=== PATIENT | female | born 1965 | race Caucasian/White ===

== ENCOUNTER 2019-05-17 16:51 | Inpatient (IN) | payer BC, OTHER ==
[~2019-05-17] VITALS: Ht 167.6 cm; Wt 137.8 kg
[2019-05-17 17:00] VITALS: BP 151/70
[2019-05-17 18:51] LABS: Basophils # (auto) 0.1 uL; Basophils % (auto) 0.9 % (0.0-2.0); Eosinophils # (auto) 0.1 uL; Eosinophils % (auto) 0.5 % (0.0-7.0); Monocytes # (auto) 0.8 uL
[2019-05-17 18:53] LABS: Hemoglobin 14.4 g/dL (12.2-16.2); Lymphocytes # (auto) 1.8 uL; Lymphocytes % (auto) 12.3 % (10.0-50.0); Mean Corpuscular Hemoglobin 23.4 pg (28.0-32.0); Mean Corpuscular Hgb Conc. 31.4 g/dL (32.0-36.0); Mean Corpuscular Volume 74.4 fL (80.0-100.0); Monocytes % (auto) 5.5 % (0.0-12.0); Neutrophils # (auto) 11.7 uL; Neutrophils % (auto) 80.8 % (37.0-80.0); Platelet Count (auto) 401 10^3/uL (140-450); Red Blood Cells 6.18 10^6/uL (4.0-5.20); White Blood Cell 14.5 10^3/uL (4.4-10.8)
[2019-05-17 19:05] LABS: Albumin 3.9 g/dL (3.4-5.0); Anion Gap 12 (5-15); Blood Urea Nitrogen 18 mg/dL (7-18); Calcium 9.6 mg/dL (8.5-10.1); Carbon Dioxide 21 mmol/L (21-32); Chloride 98 mmol/L (98-107); Glucose 229 mg/dL (74-106); Potassium 4.5 mmol/L (3.5-5.1); Sodium 131 mmol/L (136-145)
[2019-05-17 19:07] LABS: Alanine Aminotransferase 24 U/L (13-56); Aspartate Aminotransferase 24 U/L (15-37); BUN/Creatinine Ratio 11.4; GFR African American 44 mL/min; GFR Non-African American 37 mL/min
[2019-05-17 19:12] LABS: Alkaline Phosphatase 109 U/L (45-117); Bilirubin, Total 0.4 mg/dL (0.2-1.0); Total Protein 8.2 g/dL (6.4-8.2)
[2019-05-17] MEDS ORDERED: SODIUM CHLORIDE 0.9% 1,000 ML IV ONE ×2 (19:15→22:45)
[2019-05-17] MEDS ORDERED: PHENAZOPYRIDINE HCL 100 MG TAB PO ONE (19:15)
[2019-05-17] MEDS ORDERED: HYDROcodone-ACET 10/325MG TAB PO ONE (19:45)
[2019-05-17] MEDS ORDERED: IBUPROFEN 800 MG TAB PO ONE (22:00)
[2019-05-17 22:14] LABS: Alcohol, Urine < 3.0 mg/dL (0-5); Amphetamine Screen, Urine NEGATIVE (NEGATIVE); Barbiturate Scree,Urine NEGATIVE (NEGATIVE); Benzodiazephine Screen, Urine NEGATIVE (NEGATIVE); Cannabinoid Screen, Urine NEGATIVE (NEGATIVE); Cocaine Screen, Urine NEGATIVE (NEGATIVE); Opiate Scree,Urine POSITIVE (NEGATIVE); Phencyclidine Screen, Urine NEGATIVE (NEGATIVE)
[2019-05-17 22:17] LABS: Urine Bacteria MOD /hpf (None Seen); Urine Blood Negative /uL (Negative); Urine Hyaline Cast MOD /lpf (0 - 2); Urine Mucus FEW (None Seen); Urine Specific Gravity 1.018 (1.001-1.035); Urine WBC 1 /hpf (0 - 5)
[2019-05-18] MEDS ORDERED: SODIUM CHLORIDE 0.9% 1,000 ML IV ONE (00:30)
[2019-05-18] MEDS ORDERED: cefTRIAXone 1GM/50ML D5W 50 ML IV ONE ×2 (00:45→08:00)
[2019-05-18] MEDS ORDERED: HYDROcodone-ACET 10/325MG TAB PO ONE (01:00)
[2019-05-18] MEDS ORDERED: VANCOMYCIN 1GM/250ML 250 ML IV ONE ×2 (01:00→03:00)
[2019-05-18] MEDS ORDERED: TEMAZEPAM 15 MG CAP PO PRN (01:30)
[2019-05-18] MEDS ORDERED: ONDANSETRON HCL 4 MG/2 ML VIAL IV PRN (01:30)
[2019-05-18] MEDS ORDERED: NITROGLYCERIN 0.4 MG SL TAB SL PRN (01:30)
[2019-05-18] MEDS ORDERED: ACETAMINOPHEN 325 MG TAB PO PRN (01:30)
[2019-05-18] MEDS ORDERED: VANCOMYCIN PER PHARMACY 0 MG IV SCH (01:30)
[2019-05-18] MEDS ORDERED: MORPHINE SULF INJ 2 MG/ML SYRINGE 1ML IV PRN (01:30)
[2019-05-18] MEDS: SODIUM CHLORIDE 0.9% 1,000 ML IV SCH ×2 (01:58→15:57)
[2019-05-18 03:22] VITALS: BP 158/78
[2019-05-18] MEDS ORDERED: BENA20TA70 PO (03:35)
[2019-05-18] MEDS ORDERED: ESCI20TA PO (03:35)
[2019-05-18] MEDS ORDERED: HYDR-4833 PO (03:35)
[2019-05-18 03:45] VITALS: BP 158/78
--- NOTE | 2019-05-18 04:00 | NUR ---
Telemetry admit from ER LACYSAYRA RIDLEY admitted to Telemetry unit after SBAR received. Patient oriented to Ema Saunders, RN primary RN, unit, room, bed, and unit policies regarding patient care and visiting hours. Patient now on continuous telemetry monitoring, tele box #[id number] and telemetry reading on arrival to unit is NSR. Patient placed on bedside oxygen, weighed by bedscale and encouraged to call if they need something. All questions and concerns addressed, patient verbalized understanding. Note: alert and oriented x 4. room air, even and unlabored respirations. no s/s of distress or SOB. Patient ambulates independently with steady gait. IV to right forearm intact and patent infusing IVF per orders. Instructed on POC and call for assistance PRN. Will continue care.
[2019-05-18] MEDS: HYDROcodone-ACET 5/325MG TAB PO PRN ×2 (04:03→11:02)
--- NOTE | 2019-05-18 04:05 | NUR ---
AMA signed and placed in chart
--- NOTE | 2019-05-18 07:15 | NUR ---
Closing Note patient resting with even and unlabored respiration, no s/s of distress. IV intact and patent infusing IVF per order. Endorsed care to day shift RN.
--- NOTE | 2019-05-18 07:22 | NUR ---
Opening Shift Note Assumed care of patient awake, ambulatory and alert. No S/S of distress/SOB. Patient rates pain at a 8/10 and is willing to wait until pain medications are due. Bed in lowest and locked position with side rails up x2 and call light with in reach. Instructed on POC and to call for assist PRN, will continue to monitor for changes Q1hr and PRN.
[2019-05-18 09:00] VITALS: BP 108/70
[2019-05-18] MEDS: FAMOTIDINE 20 MG TAB PO SCH ×2 (09:00→21:11)
[2019-05-18 09:43] LABS: Calcium 8.5 mg/dL (8.5-10.1); Potassium 3.8 mmol/L (3.5-5.1)
[2019-05-18 09:48] LABS: BUN/Creatinine Ratio 16.3; Bilirubin, Total 0.3 mg/dL (0.2-1.0); Total Protein 7.1 g/dL (6.4-8.2)
[2019-05-18 12:56] VITALS: BP 140/57
[2019-05-18] MEDS ORDERED: VANCOMYCIN 1GM/250ML 250 ML IV SCH ×2 (14:00→16:00)
--- NOTE | 2019-05-18 15:55 | NUR ---
PAGED DR. PENN IN REGARDS TO PT PAIN.
--- NOTE | 2019-05-18 16:01 | NUR ---
RECEIVED CALL BACK FROM DR. PENN'S SENIOR JAVA PROGRAMMER ANALYST AND LEFT MESSAGE WITH SENIOR JAVA PROGRAMMER ANALYST. NO NEW ORDERS RECEIVED.
[2019-05-18] MEDS ORDERED: traMADol HCL 50 MG TAB PO PRN (17:45)
[2019-05-18] MEDS ORDERED: IBUPROFEN 400 MG TAB PO PRN (18:00)
[2019-05-18] MEDS: BENAZEPRIL HCL 10 MG TAB PO SCH (18:33)
[2019-05-18] MEDS: HYDROcodone-ACET 10/325MG TAB PO PRN ×2 (18:34→22:50)
[2019-05-18] MEDS: MEROPENEM 1GM IVPB 100 ML IV SCH (21:10)
[2019-05-18 22:00] VITALS: BP 130/71
[2019-05-18] MEDS ORDERED: DOCUSATE SOD 100 MG CAP PO SCH ×2 (22:00)
[2019-05-18] MEDS: VANCOMYCIN 1,500 MG in D5W 5% 250 ML IV SCH (22:51)
[2019-05-19] MEDS: SODIUM CHLORIDE 0.9% 1,000 ML IV SCH ×2 (01:32→13:18)
[2019-05-19 05:00] VITALS: BP 145/60
[2019-05-19] MEDS: MEROPENEM 1GM IVPB 100 ML IV SCH ×2 (05:40→14:00)
[2019-05-19 07:15] LABS: Albumin 2.9 g/dL (3.4-5.0); Calcium 8.3 mg/dL (8.5-10.1); Potassium 3.7 mmol/L (3.5-5.1)
[2019-05-19 07:18] LABS: BUN/Creatinine Ratio 18.5; Bilirubin, Total 0.3 mg/dL (0.2-1.0); Total Protein 6.6 g/dL (6.4-8.2)
[2019-05-19 07:22] LABS: Basophils # (auto) 0.1 uL; Basophils % (auto) 0.7 % (0.0-2.0); Eosinophils # (auto) 0.2 uL; Eosinophils % (auto) 1.9 % (0.0-7.0); Hematocrit 37.9 % (36.0-46.0); Hemoglobin 12.1 g/dL (12.2-16.2); Lymphocytes # (auto) 2.4 uL; Lymphocytes % (auto) 30.3 % (10.0-50.0); Mean Corpuscular Hemoglobin 23.9 pg (28.0-32.0); Mean Corpuscular Hgb Conc. 31.9 g/dL (32.0-36.0); Mean Corpuscular Volume 74.9 fL (80.0-100.0); Monocytes # (auto) 0.5 uL; Monocytes % (auto) 6.8 % (0.0-12.0); Neutrophils # (auto) 4.8 uL; Neutrophils % (auto) 60.3 % (37.0-80.0); Platelet Count (auto) 258 10^3/uL (140-450); Red Blood Cells 5.05 10^6/uL (4.0-5.20)
[2019-05-19 08:00] VITALS: BP 135/81
[2019-05-19] MEDS ORDERED: DOCUSATE SOD 100 MG CAP PO SCH (08:00)
--- NOTE | 2019-05-19 08:15 | NUR ---
OPENING SHIFT NOTE ASSUMED CARE OF PT. PT ASLEEP IN BED. NO DISTRESS NOTED. BED IN LOWEST POSITION. CALL LIGHT WITHIN REACH. SIDE RAILS ARE UP X2. WILL CONTINUE TO MONITOR.
[2019-05-19] MEDS: FAMOTIDINE 20 MG TAB PO SCH (09:54)
[2019-05-19] MEDS: HYDROcodone-ACET 10/325MG TAB PO PRN ×2 (09:56→14:50)
[2019-05-19] MEDS ORDERED: PNEUMOCOCCAL VACC POLYS 25 MCG/0.5 ML VIAL IM ONE (10:00)
[2019-05-19] MEDS ORDERED: BENAZEPRIL HCL 10 MG TAB PO SCH (10:00)
[2019-05-19] MEDS: BENAZEPRIL HCL 10 MG TAB PO SCH (10:00)
[2019-05-19] MEDS: VANCOMYCIN 1,500 MG in D5W 5% 250 ML IV SCH (10:02)
[2019-05-19 13:00] VITALS: BP 118/60
[2019-05-19 16:54] VITALS: BP 135/81
[2019-05-19 17:00] VITALS: BP 143/93
--- NOTE | 2019-05-19 19:30 | NUR ---
Opening Shift Note Report received. Patient has been discharged. IV taken out by dayshift RN, Discharge papers completed by day shift RN. Patient waiting for her transportation. Assumed care of patient, awake and alert. No S/S of distress/SOB or pain. Instructed on POC and to call for assist PRN, will continue to monitor for changes Q1hr and PRN.
--- NOTE | 2019-05-19 21:00 | NUR ---
Patient still waiting for her transportation.
--- NOTE | 2019-05-19 22:10 | NUR ---
Patient's family member arrived for her transportation. Discharge instructions given as ordered earlier. Encourage to follow up with PMD as instructed. All questions and concerns addressed. Patient verbalized understanding. Medication reconciliation form completed and copy given to patient. No home medications held in Pharmacy, and needed vaccines refused at this time. IV removed with catheter intact, pressure dressing applied by dayshift RN.Patient voiding freely. Telemetry unit returned to ICU. Patient taken to vehicle via wheelchair with all personal belongings, accompanied by staff and family member. No distress noted at time of departure.
== END 2019-05-19 22:10 | disposition home or self-care (01) | DRG 682 ==
LOC: EDBD 16:51 → ER 17:02 → TELE 17:03 → TELE-WESTW 05-18 03:28
PROVIDERS: ADMIT Nurse Practitioner; ATTEND Internal Medicine Pulmonary Disease
DX: N17.0 Acute kidney failure with tubular necrosis (principal); R65.11 Systemic inflammatory response syndrome (SIRS) of non-infectious origin with acute organ dysfunction; F11.20 Opioid dependence, uncomplicated; Z68.42 Body mass index [BMI] 45.0-49.9, adult; E66.01 Morbid (severe) obesity due to excess calories; G89.4 Chronic pain syndrome; I95.2 Hypotension due to drugs; T50.905A Adverse effect of unspecified drugs, medicaments and biological substances, initial encounter; F17.210 Nicotine dependence, cigarettes, uncomplicated; D72.829 Elevated white blood cell count, unspecified; I10 Essential (primary) hypertension; J44.9 Chronic obstructive pulmonary disease, unspecified; E86.0 Dehydration; K59.00 Constipation, unspecified; Z98.84 Bariatric surgery status; Y92.89 Other specified places as the place of occurrence of the external cause; Z90.710 Acquired absence of both cervix and uterus; Z90.49 Acquired absence of other specified parts of digestive tract; Z88.1 Allergy status to other antibiotic agents; Z88.5 Allergy status to narcotic agent; Z28.82 Immunization not carried out because of caregiver refusal
CPT/HCPCS: 36415; 71045; 71250; 74176; 80053; 80202; 80307; 81001; 83036; 83605; 83880; 84484; 85025; 87040; 93005; 96361; 96365; G0378; J2185; J7060